=== PATIENT | female | born 1945 | race Hispanic/Latino ===

== ENCOUNTER 2018-05-07 20:27 | Inpatient (IN) | payer MEDICARE, BC ==
[2018-05-07 20:46] VITALS: RESP 18
[2018-05-07] MEDS ORDERED: Morphine 2 mg/ml ISec IVP STA ×2 (20:58→22:47)
[2018-05-07] MEDS: Sodium Chloride 0.9% 1,000 ML IV SCH (21:10)
[2018-05-07 21:21] LABS: HEMOGLOBIN 14.1 g/dL (12.0-16.0); MEAN CELL VOLUME 98.1 fl (80.0-105.0); MEAN CORPUSCULAR HEMOGLOBIN 32.9 pg (25.0-35.0); MEAN CORPUSCULAR HGB CONC 33.5 g/dl (31.0-37.0); MEAN PLATELET VOLUME 9.5 fl (7.0-11.0); RBC 4.29 10^6/uL (3.5-6.1); RED CELL DISTRIBUTION WIDTH 13.7 % (11.5-14.5); WHITE BLOOD COUNT 16.3 10^3/uL (4.5-11.0)
[2018-05-07 21:29] LABS: INR 1.15; PARTIAL THROMBOPLASTIN TIME 32.2 Seconds (26.9-38.3); PROTHROMBIN TIME 12.8 SECONDS (9.4-12.5)
[2018-05-07 21:32] LABS: ALB/GLOB RATIO 1.1 (1.1-1.8); ALBUMIN 4.4 g/dL (3.0-4.8); ALT/SGPT 18 U/L (7-56); AST/SGOT 36 U/L (14-36); BLOOD UREA NITROGEN 12 mg/dL (7-21); GFR NON-AFRICAN AMERICAN > 60
--- NOTE | 2018-05-07 21:37 | ED PDOC ---
Arrival/HPI - General Chief Complaint: Trauma Time Seen by Provider: 05/07/18 20:47 Historian: Patient - History of Present Illness Narrative History of Present Illness (Text): 05/07/18 21:00 A 73 year old female, whose past medical history includes Breast cancer, spinal stenosis, hypertension, anxiety, and hyperlipidemia, presents to the emergency department complaining of right hip discomfort after a mechanical fall this rob kaylen. Patient is unable to stand and complains of pain with any movement of right hip. Patient denies any shortness of breath, chest pain, or any other complaints. PMD: Dr. Greenwood Time/Duration: 4-6 hours (earlier this morning) Symptom Onset: Sudden Symptom Course: Unchanged Activities at Onset: Light Context: Home Past Medical History - Provider Review Nursing Documentation Reviewed: Yes - Infectious Disease Hx of Infectious Diseases: None - Cardiac Hx Pacemaker: No - Neurological Hx Paralysis: No - Hematological/Oncological Hx Blood Transfusions: No Hx Blood Transfusion Reaction: No - Musculoskeletal/Rheumatological Hx Musculoskeletal Disorders: Yes - Psychiatric Hx Emotional Abuse: No Hx Physical Abuse: No Hx Substance Use: No - Anesthesia Hx Anesthesia Reactions: No Hx Malignant Hyperthermia: No - Suicidal Assessment Feels Threatened In Home Enviroment: No Family/Social History - Physician Review Nursing Documentation Reviewed: Yes Family/Social History: No Known Family HX Smoking Status: Never Smoked Hx Alcohol Use: Yes (SOCIAL) Hx Substance Use: No Hx Substance Use Treatment: No Allergies/Home Meds Allergies/Adverse Reactions: Allergies No Known Allergies Allergy (Verified 05/07/18 20:31) Home Medications: Home Meds Medication Instructions Recorded Confirmed Amlodipine Besylate 10 mg PO DAILY 08/27/11 05/07/18 Aspirin [Ecotrin] 81 mg PO DAILY 08/27/11 05/07/18 Albuterol Sulfate [Albuterol Hfa] 2 puff IH PRN PRN 12/08/13 05/07/18 Lorazepam 0.5 mg PO DAILY PRN 12/08/13 05/07/18 Famotidine [Pepcid] 20 mg PO DAILY 05/07/18 05/07/18 Inulin/Cholecalciferol (D3) [Fiber 2,000 units PO BID 05/07/18 05/07/18 Gummies-Vitamin D3] Lisinopril [Zestril] 10 mg PO DAILY 05/07/18 05/07/18 Review of Systems - Review of Systems Respiratory: absent: SOB Cardiovascular: absent: Chest Pain Musculoskeletal: Other (right hip discomfort) Physical Exam Vital Signs Reviewed: Yes Vital Signs Temp Pulse Resp BP Pulse Ox 05/07/18 20:43 97.9 F 71 18 157/66 H 97 Temperature: Afebrile Blood Pressure: Hypertensive Pulse: Regular Respiratory Rate: Normal Mental Status: Positive for: Alert and Oriented X 3 - Systems Exam Head: Present: Atraumatic, Normocephalic Pupils: Present: PERRL Extroacular Muscles: Present: EOMI Conjunctiva: Present: Normal Neck: Present: Normal Range of Motion Respiratory/Chest: Present: Clear to Auscultation, Good Air Exchange. No: Respiratory Distress, Accessory Muscle Use Cardiovascular: Present: Regular Rate and Rhythm, Normal S1, S2. No: Murmurs Abdomen: No: Tenderness, Distention, Peritoneal Signs Lower Extremity: Present: Neurovascularly Intact, Other (extreme pain on any attempot of right hip movement; shortnening and exterenal rotation of right leg) Neurological: Present: GCS=15, CN II-XII Intact, Other (no focal or motor sensory defecits). No: Motor Func Grossly Intact Medical Decision Making ED Course and Treatment: 05/07/18 21:05 Impression: 73 year old female presenting to the emergency room complaining of right hips discomfort. Plan: -- EKG -- CMP -- COAGs -- Chest X-ray -- Morphine -- IV fluids -- Zofran -- Xray of right hip -- Reassess and disposition Prior Visits: Notes and results from previous visits were reviewed. Progress Notes: 05/07/18 21:51 EKG: Ordered, reviewed, and independently interpreted the EKG. Rate : 72 BPM Rhythm : NSR Interpretation : Left bundle branch block, no ST-T wave changes. 05/07/18 22:39 Chest x ray reviewed by me, shows no acute processing. Xray of right hip reviewed by me, shows fracture of right femoral neck. 05/07/18 22:[address] Greenwood who requests patient be placed in telemetry given past cardiac history and also requests patient be seen by Dr. Foss. 05/07/18 23:[address] Greenwood who accepts patient tho her service, requested Dr. Odom and Dr. Foss on consult. Dr. Greenwood also requested patient be placed in telemetry given patients cardiac history of cardiac arrythmias. - RAD Interpretation Radiology Orders: 05/07/18 20:56 CHEST PORTABLE [RAD] Stat 05/07/18 20:57 Hip Bi with Pelvis Fall Protocol [HIP MIN 2V W/ PELVIS CRAIG] [RAD] Stat - Medication Orders Current Medication Orders: Sodium Chloride (Sodium Chloride 0.9%) 1,000 mls @ 100 mls/hr IV .Q10H VAL Last Admin: 05/07/18 21:10 Dose: 100 mls/hr eMAR Start Stop Document 05/07/18 21:10 AD (Rec: 05/07/18 21:11 AD [id number]) Intravenous Solution Start Date 05/07/18 Start Time 21:11 Discontinued Medications Morphine Sulfate (Morphine) 2 mg IVP STAT STA Stop: 05/07/18 20:59 Last Admin: 05/07/18 21:12 Dose: 2 mg MAR Pain Assessment Document 05/07/18 21:12 AD (Rec: 05/07/18 21:12 AD [id number]) Pain Reassessment Is this a pain reassessment? No Presence of Pain Presence of Pain Yes Pain Scale Used Protocol: PSCALES Pain Scale Used Numeric Description Intensity of Pain at present 8 IVP Administration Document 05/07/18 21:12 AD (Rec: 05/07/18 21:12 AD [id number]) Charges for Administration # of IVP Administrations 1 Ondansetron HCl (Zofran Inj) 4 mg IVP ONCE ONE Stop: 05/07/18 20:59 Last Admin: 05/07/18 21:11 Dose: 4 mg IVP Administration Document 05/07/18 21:11 AD (Rec: 05/07/18 21:12 AD [id number]) Charges for Administration # of IVP Administrations 1 - Scribe Statement The provider has reviewed the documentation as recorded by the Maureenibgorge Capone All medical record entries made by the Scribe were at my direction and personally dictated by me. I have reviewed the chart and agree that the record accurately reflects my personal performance of the history, physical exam, medical decision making, and the department course for this patient. I have also personally directed, reviewed, and agree with the discharge instructions and disposition. Disposition/Present on Arrival - Present on Arrival Any Indicators Present on Arrival: No History of DVT/PE: No History of Uncontrolled Diabetes: No Urinary Catheter: No History of Decub. Ulcer: No History Surgical Site Infection Following: None - Disposition Have Diagnosis and Disposition been Completed?: Yes Diagnosis: Hip fracture Disposition: HOSPITALIZED Disposition Time: 22:48 Patient Plan: Admission Condition: STABLE
[2018-05-07 23:22] LABS: TROPONIN I < 0.01 ng/mL
[2018-05-07 23:53] LABS: PH,URINE 6.5 (4.7-8.0); URINE BILIRUBIN NEGATIVE (NEGATIVE); URINE BLOOD TRACE-INTACT (NEGATIVE); URINE GLUCOSE (UA) NEGATIVE (NEGATIVE); URINE LEUKOCYTE ESTERASE NEGATIVE Leu/uL (NEGATIVE); URINE PROTEIN TRACE mg/dL (<30 mg/dL); URINE UROBILINOGEN 0.2 E.U./dL (<1 E.U./dL)
[2018-05-07 23:54] LABS: URINE APPEARANCE CLEAR (CLEAR); URINE COLOR STRAW (YELLOW)
[2018-05-08 00:17] LABS: URINE EPITHELIAL CELLS 0 - 2 /hpf (0-5); URINE RBC 0 - 2 /hpf (0-2); URINE WBC 0 - 2 /hpf (0-6)
[2018-05-08] MEDS: Morphine 2 mg/ml ISec IVP PRN ×3 (01:13→11:50)
[2018-05-08 02:03] VITALS: BMI 23.7
[2018-05-08 07:06] VITALS: O2SAT 92
[2018-05-08] MEDS: Sodium Chloride 0.9% 1,000 ML IV SCH (07:30)
[2018-05-08 07:42] LABS: HEMOGLOBIN 13.2 g/dL (12.0-16.0); MEAN CELL VOLUME 98.1 fl (80.0-105.0); MEAN CORPUSCULAR HGB CONC 32.6 g/dl (31.0-37.0); MEAN PLATELET VOLUME 9.7 fl (7.0-11.0); RBC 4.13 10^6/uL (3.5-6.1); RED CELL DISTRIBUTION WIDTH 13.6 % (11.5-14.5); WHITE BLOOD COUNT 9.6 10^3/uL (4.5-11.0)
--- NOTE | 2018-05-08 09:55 | RAD ---
Date of service: 05/07/2018 PROCEDURE: CHEST RADIOGRAPH, 1 VIEW HISTORY: medical clearance COMPARISON: 01/07/2018. FINDINGS: Artifacts overlying the left lung. LUNGS: The lungs are well inflated and clear. PLEURA: No pneumothorax or pleural effusion. CARDIOVASCULAR: The heart is normal in size. There are aortic atherosclerotic calcifications present. OSSEOUS STRUCTURES: Within normal limits for the patient's age. VISUALIZED UPPER ABDOMEN: Normal. OTHER FINDINGS: None. IMPRESSION: No active pulmonary disease.
--- NOTE | 2018-05-08 10:41 | RAD ---
PROCEDURE: Radiographs of the pelvis and bilateral hips HISTORY: right hip pain post fall COMPARISON: None. TECHNIQUE: Five views obtained. FINDINGS: BONES: Pelvis: Unremarkable. Right hip:There is a displaced angulated intertrochanteric fracture of the right hip Left hip:Unremarkable. JOINTS: Right hip: Unremarkable. Left hip: Unremarkable. Sacroiliac Joints: Unremarkable. Pubic symphysis: Unremarkable. SOFT TISSUES: Normal. OTHER FINDINGS: None. IMPRESSION: There is a displaced angulated intertrochanteric fracture of the right hip
[2018-05-08] MEDS ORDERED: Cholecalciferol 1,000 INTLU TAB PO SCH (11:45)
[2018-05-08 12:05] VITALS: BP 150/67
[2018-05-08 12:10] VITALS: TEMP 98.9
--- NOTE | 2018-05-08 12:22 | CON ---
DATE OF CONSULTATION: 05/08/2018 REQUESTING PHYSICIAN: Dr. Greenwood. REASON FOR CONSULTATION: Preoperative cardiac evaluation. HISTORY: This is a 73-year-old woman, known to us from prior evaluations with a history of longstanding tobacco abuse, prior breast cancer, and hyperlipidemia, who presented to the emergency room after a fall at home. She states she tripped over a segment of her rug and fell on her right hip resulting in severe pain. She was brought to the emergency room and was found to have a hip fracture. Surgical intervention is being planned. She is undecided as to whether to have it done in [place] or be transferred to [facility] under the care of her orthopedist there. She denies any prior cardiac history. She had no syncope with this event. She was evaluated in 2011 after a stress test was found to be abnormal. Catheterization at that time revealed no evidence of significant coronary artery disease. She denies any chest pain. She does have chronic exertional dyspnea. This is unchanged of late. Her activities level has been good. PAST MEDICAL HISTORY: Her past history is notable for the problems mentioned above. She also has anxiety, spinal stenosis, and hyperlipidemia. MEDICATIONS: Her medications at home included aspirin, amlodipine, lorazepam, Pepcid, and lisinopril 10 mg daily. ALLERGIES: NONE. SOCIAL HISTORY: She is a smoker of at least half pack per day. She drinks alcohol occasionally. FAMILY HISTORY: Both parents are from age-related illness. REVIEW OF SYSTEMS: A 10-point review of systems is, otherwise, unremarkable. PHYSICAL EXAMINATION: GENERAL: She is a middle-aged woman, who appears uncomfortable due to her hip pain. VITAL SIGNS: Her blood pressure is 146/68, with a pulse of 74 and sinus, respirations are 14. She is afebrile. HEENT: Normocephalic, atraumatic. NECK: Supple. No JVD noted. CHEST: Bilateral scattered rhonchi heard. HEART: PMI in normal position. A soft systolic murmur is notable at the left sternal border. ABDOMEN: Soft, nontender with normoactive bowel sounds. EXTREMITIES: No clubbing, cyanosis, or edema. SKIN: Warm and dry. PSYCHIATRIC: Normal mood and affect. NEUROLOGIC: Alert and oriented x3; right leg motion limited due to pain and hip fracture. LABORATORY DATA: Her electrocardiogram reveals sinus rhythm with a nonspecific ST-T abnormality. Chest x-ray is pending. White count is 9.6, hemoglobin and hematocrit are 13.2 and 40.5, with a platelet count of 429,000. PT/PTT are 12.8 and 32.2, potassium 4.2, BUN and creatinine are 12 and 0.5. Troponin is negative. IMPRESSION AND PLAN: 1. Recent mechanical fall with resultant right hip fracture in need of surgical repair. 2. Multiple cardiac risk factors given the history of hypertension, hyperlipidemia, and tobacco abuse. Catheterization 6 years ago revealed no evidence of significant coronary artery disease at that time. She has no recent cardiac symptoms and has a fairly good functional capacity. From a cardiac standpoint, at least her operative risk appears average, and no further preoperative workup is necessary at the present time. Obviously, smoking abstinence is strongly advised. Thank you for this consultation. I will be happy to follow along through her hospital course as needed and see her as an outpatient upon discharge as well. Pancho Odom MD MTDJackie
--- NOTE | 2018-05-08 13:36 | CON ---
DATE: 05/08/2018 HISTORY OF PRESENT ILLNESS: The patient is 73-year-old female slipped and fell at home yesterday afternoon. X-rays in the ER showed displaced intertrochanteric fracture right hip with no associated osteoarthritis of the hip. She is a candidate for internal fixation with a peritrochanteric sultana from [employer], we could do it today. She has been n.p.o. as her IV running and she is in quite a bit of pain, but she says she wants to go to [facility], so I am going to add Dr. Greenwood talk to the patient, see if she could stay here and we could fix the fracture here then she can go to [place] for her evaluation by doctor for her knee problem. FINAL DIAGNOSIS: Displaced intertrochanteric fracture of right hip, plan is to do open reduction and internal fixation in [facility], but the patient is considering going to [facility], but we could do it today and get the pain eradicate and then she can go to [place] . Isai Foss DO
[2018-05-08] MEDS ORDERED: Morphine 4 mg/ml ISec IVP PRN (14:25)
[2018-05-08 14:39] VITALS: PULSE 68
--- NOTE | 2018-05-08 14:43 | HP ---
DATE OF EXAM: 05/08/2018 FINAL DIAGNOSES: Right hip fracture status post fall, history of chronic hypertension, peptic ulcer disease with gastroesophageal reflux disease, anxiety neurosis, degenerative arthritis, history of breast cancer in her distant past. DISPOSITION: She is going to the [facility] to be transferred on family request to an accepting orthopedic surgeon that they are arranging for presently. She will be transported via [facility]. The patient was seen in consultation by Dr. Isai Foss from Orthopedics at the [facility]. DIET: Her discharge diet is heart healthy. DISCHARGE MEDICATIONS: Vitamin D 2000 units p.o. twice a day, Zestril 10 mg p.o. daily, Pepcid 20 mg p.o. daily, Ativan 0.5 mg p.o. daily p.r.n. anxiety, Ecotrin 81 mg p.o. daily, Norvasc 10 mg p.o. daily, ProAir 2 puffs inhalational every 6 hours p.r.n. anxiety and the patient was receiving morphine 2 mg IV every 4 hours p.r.n. severe pain. SUMMARY: This is a 73-year-old female who tripped and fell at her home last evening. She sustained a right femoral fracture and was seen in consultation by Dr. Isai Foss from Orthopedics who recommended pinning of the right hip. Right hip x-rays were reviewed and showed a displaced angulated intratrochanteric fracture of the right hip. Family and the patient were advised. The patient's niece is an anesthesiologist at the [facility] and family has decided to have her care transferred to an orthopedist at that facility. Chest x-ray was reviewed prior to discharge. It showed that her lungs were well inflated and clear. There was no pneumothorax or pleural effusion. Heart is normal in size and there is no evidence of congestive heart failure nor pneumonia. At the time of her discharge, temperature is temperature 98.8, respirations 18, pulse 74, blood pressure 143/70 with a pulse ox of 92% room air. Labs show white count 9600, hemoglobin 13.2, hematocrit 40.5, platelets 429,000. PT/INR 1.15, PTT 32.2. Sodium 137, K 4.2, chloride 99, bicarb 27, BUN 12, creatinine 0.5, random blood sugar 82, calcium 10.0. Bilirubin 0.3, AST 36, ALT 18 and alk phos 80. Troponin less than 0.01. Patient is cleared for transfer to the [facility] as per family request. All of the above was reviewed with the patient, her at bedside, family members at bedside and nurse practitioner Amira Tim, as well as case management and social workers. All questions were answered. Jannet Greenwood MD DOMINIQUE
[2018-05-08] MEDS ORDERED: Morphine 2 mg/ml ISec IVP PRN (16:00)
--- NOTE | 2018-05-08 22:36 | CARD ---
APPROVED REPORT Date of service: 05/07/2018 EKG Measurement Heart [id number] <Conclusion> Normal sinus rhythm Possible Left atrial enlargement Left bundle branch block Abnormal ECG
== END 2018-05-08 17:10 | disposition short-term general hospital (02) | DRG 536 ==
LOC: ED 20:27 → ERH 22:48 → 2RSO 05-08 00:16
PROVIDERS: ADMIT Internal Medicine; ATTEND Internal Medicine
DX: S72.141A Displaced intertrochanteric fracture of right femur, initial encounter for closed fracture (principal); I10 Essential (primary) hypertension; M48.00 Spinal stenosis, site unspecified; F41.9 Anxiety disorder, unspecified; F17.200 Nicotine dependence, unspecified, uncomplicated; E78.5 Hyperlipidemia, unspecified; W01.0XXA Fall on same level from slipping, tripping and stumbling without subsequent striking against object, initial encounter; Y92.009 Unspecified place in unspecified non-institutional (private) residence as the place of occurrence of the external cause; Z85.3 Personal history of malignant neoplasm of breast; Z79.82 Long term (current) use of aspirin